=== PATIENT | male | born 1945 | race Caucasian/White ===

== ENCOUNTER 2016-09-17 18:27 | Inpatient (IN) | payer MEDICARE, OTHER ==
[~2016-09-17 18:27] MED LIST: KEFLEX500 MG PO; NORCO 5/325 TAB1 TAB PO
[2016-09-17 19:25] LABS: BASO % 0.1 % (0-2); EOS % 0.2 % (0-7); HCT-HEMATOCRIT 36.7 % (36.0-53.5); HGB-HEMOGLOBIN 13.3 gm/dl (13.5-17.0); IMMATURE GRANULOCYTES ABSOLUTE 0.01 tho/cmm (0-0.03); IMMATURE GRANULOCYTES PERCENT 0.1 % (0-0.3); LYMPH % 7.8 % (20-45); LYMPH ABSOLUTE COUNT 0.9 tho/cmm (0.8-4.5); MCH (MEAN CORPUSCULAR HGB) 31.8 pg (28.0-32.0); MCHC MEAN CORPUSCULAR HGB CONC 36.2 % (32.0-36.0); MCV (MEAN CELL VOLUME) 87.8 fl (82.0-96.0); MONO % 5.1 % (0-12); MONOCYTE ABSOLUTE COUNT 0.6 tho/cmm (0.0-1.2); NEUTROPHIL ABSOLUTE COUNT 10.4 tho/cmm (1.6-8.0); NEUTROPHIL-AUTOMATED 10.4 tho/cmm (1.6-8.0); NEUTROPHILS % 86.7 % (40-80); PLATELET COUNT 155 tho/cmm (150-450); RED BLOOD COUNT 4.18 mil/cmm (4.40-5.70); RED CELL DISTRIBUTION WIDTH 12.6 % (12.4-16.4)
[2016-09-17 19:42] LABS: ANION GAP 14 mmol/L (0-20); BLOOD UREA NITROGEN 14 mg/dl (6-24); CALCIUM 9.1 mg/dl (8.5-10.5); CARBON DIOXIDE-VENOUS 25 mmol/L (22-32); CHLORIDE 105 mmol/l (96-110); CREATININE 1.16 mg/dl (0.60-1.30); GLUCOSE 148 mg/dL (70-110); POTASSIUM 4.2 mmol/L (3.7-5.1); SODIUM 140 mmol/L (135-145); eGFR VALUE FOR BLACK 75 mL/Min
[2016-09-17] MEDS ORDERED: PRINIVIL5 M1 PO (20:10)
[2016-09-17] MEDS ORDERED: GLUCOPHAGE500 M3 PO (20:34)
[2016-09-17 20:38] LABS: INR 0.9 INR (0.9-1.1); PROTHROMBIN TIME 10.6 SECONDS (9.0-13.6)
[2016-09-18] MEDS ORDERED: LEVEMIR100 UNITS/ SC (08:57)
[2016-09-18] MEDS ORDERED: LIPITOR10 M1 PO (08:58)
[2016-09-18] MEDS ORDERED: METFORMIN HCL500 M4 PO (08:58)
[2016-09-18] MEDS ORDERED: GLUCOTROL5 M1 PO (08:58)
[2016-09-18] MEDS ORDERED: PROSCAR5 M1 PO (08:59)
[2016-09-18] MEDS ORDERED: ZESTRIL10 M3 PO (08:59)
[2016-09-18] MEDS ORDERED: FLOMAX0.4 M1 PO (08:59)
== END 2016-09-18 12:55 | disposition other institution (70) | DRG 282 ==
LOC: EDMED 18:27 → EMR2 20:48 → PCUB 23:11
PROVIDERS: Emergency Medicine; Nurse Practitioner Family; ADMIT Internal Medicine Interventional Cardiology
PROC: 4A023N7 Measurement of Cardiac Sampling and Pressure, Left Heart, Percutaneous Approach (ICD-10-PCS; principal; 2016-09-18)
PROC: B211YZZ Fluoroscopy of Multiple Coronary Arteries using Other Contrast (ICD-10-PCS; 2016-09-18)
PROC: B215YZZ Fluoroscopy of Left Heart using Other Contrast (ICD-10-PCS; 2016-09-18)
DX: I21.4 Non-ST elevation (NSTEMI) myocardial infarction (principal); E11.9 Type 2 diabetes mellitus without complications; I10 Essential (primary) hypertension; I25.10 Atherosclerotic heart disease of native coronary artery without angina pectoris; D72.829 Elevated white blood cell count, unspecified
CPT/HCPCS: C1894; J1644; J1815; J2250; J3010; Q9967